=== PATIENT | female | born 1940 | race African-American/Black ===

== ENCOUNTER 2025-06-15 17:03 | Emergency (ER) | payer MEDICAID, OTHER ==
[~2025-06-15] VITALS: Ht 165.1 cm; Wt 73.0 kg
[~2025-06-15 17:03] MED LIST: ALBU2; AMLO10TA80 PO; AZIT250T12 PO; GABA-529 PO; LOSA100T33 PO; METO-411; PRED5TAB48 PO; WARF-53 PO; insulin
[2025-06-15 17:04] VITALS: O2SAT 98
[2025-06-15] MEDS: HYDRALAZINE 20MG/ML VIAL IV ONE (17:57)
[2025-06-15] MEDS: CLONIDINE 0.1MG TABLET PO ONE (17:57)
[2025-06-15 18:20] LABS: BASOPHILS % 1.3 % (0.0-2.0); EOSINOPHILS % 4.9 % (0.0-5.0); HEMATOCRIT. 41.5 % (36.0-48.0); HEMOGLOBIN. 13.7 g/dL (12.0-16.0); LYMPHOCYTES % 28.3 % (20.0-50.0); MEAN PLATELET VOLUME 9.7 fl (7.4-10.4); MONOCYTES % 7.7 % (2.0-8.0); NEUTROPHILS % 57.8 % (40.0-76.0); PLATELET 201 x1000/uL (130-400); RED BLOOD CELL COUNT 4.38 mill/uL (4.2-5.4); RED CELL DISTRIBUTION WIDTH 13.2 % (11.6-14.6)
[2025-06-15 18:30] LABS: CREATININE 1.0 mg/dL (0.6-1.0); UREA NITROGEN BLOOD 15 mg/dL (9-23)
[2025-06-15] MEDS: LABETALOL 5MG/ML 4ML INJ IV ONE (18:52)
[2025-06-15 20:53] VITALS: BP 134/65; PULSE 67; RESP 14; TEMP 36.9; O2SAT 98
== END 2025-06-15 21:16 | disposition home or self-care (01) ==
LOC: ER 17:03
DX: I11.0 Hypertensive heart disease with heart failure (principal); I50.9 Heart failure, unspecified; J44.9 Chronic obstructive pulmonary disease, unspecified; E11.9 Type 2 diabetes mellitus without complications; Z98.890 Other specified postprocedural states; Z88.8 Allergy status to other drugs, medicaments and biological substances
CPT/HCPCS: 99285; 96374; 80048; 85025; 36415; J0360; J3490